=== PATIENT | male | born 1985 | race Caucasian/White ===

== ENCOUNTER 2018-01-16 22:32 | Emergency (ER) | payer SELFPAY | END 2018-01-17 00:53 | disposition left against medical advice (07) | LOC: E/R 22:32 | DX: Z53.21 Procedure and treatment not carried out due to patient leaving prior to being seen by health care provider (principal) ==

== ENCOUNTER 2018-01-17 11:21 | Emergency (ER) | payer MEDICAID ==
[2018-01-17] MEDS: ONDANSETRON 4 MG INJ IV (12:33)
[2018-01-17] MEDS: morphine 4 MG/ML VIAL IV (12:34)
[2018-01-17] MEDS: SOD CHLORIDE 0.9% 1,000 ML IV (12:34)
[2018-01-17 12:43] LABS: ADD MAN DIFF? NO
[2018-01-17 12:46] LABS: WHITE BLOOD COUNT 6.8 10^3/ul (4.8-10.8)
[2018-01-17 12:46] LABS: BASOPHILS % 0.4 % (0.0-2.0); HEMATOCRIT 42.4 % (42.0-52.0); HEMOGLOBIN 15.1 g/dl (14.0-18.0); LYMPHOCYTES # 2.2 10^3/ul (0.8-2.9); LYMPHOCYTES % 32.4 % (15.0-51.0); MEAN CORPUSCULAR HEMOGLOBIN 30.8 pg (29.0-33.0); MEAN CORPUSCULAR HGB CONC 35.6 g/dl (32.0-37.0); MEAN CORPUSCULAR VOLUME 86.5 fl (82.0-101.0); MEAN PLATELET VOLUME 8.1 fl (7.4-10.4); MONOCYTE # 0.4 10^3/ul (0.3-0.9); MONOCYTES % 6.3 % (0.0-11.0); NEUTROPHIL # 4.1 10^3/ul (1.6-7.5); NEUTROPHILS % 60.6 % (39.0-77.0); PLATELET COUNT 352 10^3/UL (140-415); RED CELL DISTRIBUTION WIDTH 12.4 % (11.5-14.5)
[2018-01-17 12:49] LABS: ADD UMIC NO; UR ASCORBIC ACID NEGATIVE (NEGATIVE); UR BILIRUBIN (Dip) NEGATIVE (NEGATIVE); UR BLOOD (Dip) NEGATIVE (NEGATIVE); UR CLARITY CLEAR (CLEAR); UR COLOR STRAW (YELLOW); UR GLUCOSE (Dip) NEGATIVE (NEGATIVE); UR KETONES (Dip) NEGATIVE (NEGATIVE); UR LEUKOCYTE ESTERASE (Dip) NEGATIVE Leu/ul (NEGATIVE); UR NITRITE (Dip) NEGATIVE (NEGATIVE); UR SPECIFIC GRAVITY (Dip) 1.006 (1.003-1.030); UR TOTAL PROTEIN (Dip) NEGATIVE (NEGATIVE); UR UROBILINOGEN (Dip) NEGATIVE (NEGATIVE)
[2018-01-17 13:04] LABS: ALANINE AMINOTRANSFERASE 38 IU/L (13-69); ALBUMIN 4.6 g/dl (3.3-4.9); ALBUMIN/GLOBULIN RATIO 1.21; ALKALINE PHOSPHATASE 123 IU/L (42-121); ANION GAP 16 (8-16); ASPARTATE AMINO TRANSFERASE 40 IU/L (15-46); BILIRUBIN,INDIRECT 1.6 mg/dl (0-1.1); BILIRUBIN,TOTAL 1.6 mg/dl (0.2-1.3); BLOOD UREA NITROGEN 9 mg/dl (7-20); CALCIUM 8.6 mg/dl (8.4-10.2); CARBON DIOXIDE 27 mmol/L (21-31); CHLORIDE 101 mmol/L (97-110); CREATININE 0.77 mg/dl (0.61-1.24); GLUCOSE 114 mg/dl (70-220); LIPASE 65 U/L (23-300); POTASSIUM 4.1 mmol/L (3.5-5.1); SODIUM 140 mmol/L (135-144); TOTAL PROTEIN 8.4 g/dl (6.1-8.1)
== END 2018-01-17 14:15 | disposition home or self-care (01) ==
LOC: FTE 11:21
DX: M54.5 Low back pain (principal); R11.10 Vomiting, unspecified; N20.0 Calculus of kidney
CPT/HCPCS: 36415; 74176; 80053; 81003; 83690; 85025; 96374; 96375; 99285-25

== ENCOUNTER 2018-03-22 11:33 | Emergency (ER) | payer SELFPAY, OTHER, MEDICAID ==
[2018-03-22] MEDS: DEXAMETHASONE 10 MG/ML 1 ML INJ IM (12:10)
[2018-03-22] MEDS: KETOROLAC 30 MG INJ IM (12:11)
[2018-03-22] MEDS: METHOCARBAMOL 750 MG TAB PO (12:15)
[2018-03-22 12:22] LABS: URINE BLOOD (Dip) POC Negative (NEGATIVE); URINE GLUCOSE (Dip) POC Negative (NEGATIVE); URINE KETONES (Dip) POC Negative (NEGATIVE); URINE LEUKOCYTE EST (Dip) POC Negative (NEGATIVE); URINE NITRITE (Dip) POC Negative (NEGATIVE); URINE TOTAL PROTEIN POC Trace (NEGATIVE)
== END 2018-03-22 13:44 | disposition home or self-care (01) ==
LOC: FTE 11:33
DX: M54.5 Low back pain (principal)
CPT/HCPCS: 76775; 81003; 96372; 99285-25